=== PATIENT | female | born 1985 ===

== ENCOUNTER 2020-09-29 11:33 | Emergency (ER) | payer OTHER ==
[~2020-09-29] VITALS: Ht 154.9 cm; Wt 74.8 kg
[2020-09-29] MEDS ORDERED: MIRT15 PO (11:42)
[2020-09-29] MEDS ORDERED: LEVETIRACETAM PO (11:42)
[2020-09-29] MEDS ORDERED: METPRE4DP PO (13:01)
[2020-09-29] MEDS ORDERED: Pepcid20 MG PO (13:01)
[2020-09-29] MEDS ORDERED: BENADRYL25 MG PO (13:01)
== END 2020-09-29 13:27 | disposition home or self-care (01) ==
LOC: ER 11:33
DX: T63.461A Toxic effect of venom of wasps, accidental (unintentional), initial encounter (principal); F17.200 Nicotine dependence, unspecified, uncomplicated; Z91.030 Bee allergy status; Z79.899 Other long term (current) drug therapy
CPT/HCPCS: 36415; 96374; 96375; 99282-25; J1100; J1200; J1885